=== PATIENT | female | born 1955 | race Caucasian/White ===

== ENCOUNTER 2017-04-28 14:28 | Outpatient (CLI) | payer OTHER ==
--- NOTE | 2017-04-28 15:58 | RAD ---
LUMBAR SPINE TWO VIEWS: History: Low back pain. FINDINGS: There is levoscoliosis of the lumbar spine with degenerative changes in the lower lumbar spine. There is mild compression of the superior endplate of L5. No subluxation is seen. POS: OFF
== END 2017-04-28 14:29 | disposition home or self-care (01) ==
LOC: MADRAD 14:28
PROVIDERS: ATTEND Internal Medicine
DX: M54.5 Low back pain (principal); S33.5XXA Sprain of ligaments of lumbar spine, initial encounter
CPT/HCPCS: 72100

== ENCOUNTER 2019-07-05 16:06 | Emergency (ER) | payer MEDICARE, OTHER ==
[2019-07-05 16:43] LABS: #Basophils 0.1 thou/uL (0.0-0.2); #Eosinphils 0.1 thou/uL (0.0-0.7); #Lymphocytes 1.5 thou/uL (1.20-3.40); #Monocytes 0.5 thou/uL (0.11-0.59); #Neutrophils 5.6 thou/uL (1.40-6.50); %Basophils 0.9 % (0.0-1.0); %Eosinophils 1.6 % (0.0-10.0); %Lymphocytes 19.3 % (21.0-51.0); %Monocytes 6.6 % (0.0-10.0); %Neutrophils 71.5 % (42.0-75.0); Hemoglobin 11.2 g/dL (12.0-16.0); Mean Corpuscular HGB CONC 31.6 g/dL (32.0-36.0); Mean Corpuscular Hemoglobin 30.3 pg (27.0-31.0); Mean Corpuscular Volume 95.7 fL (78.0-98.0); Mean Platelet Volume 6.8 fL (7.4-10.4); Platelet Count 310 thou/uL (130-400); RBC Distribution Width 13.7 % (11.5-14.5); Red Blood Cell (RBC) Count 3.68 mill/uL (4.20-5.40); White Blood Cell (WBC) Count 7.8 thou/uL (4.8-10.8)
[2019-07-05 16:56] LABS: ALT (SGPT) 19 U/L (8-55); AST (SGOT) 20 U/L (5-34); Albumin 4.3 g/dL (3.4-4.8); Alkaline Phosphatase 53 U/L (40-110); Anion Gap 14 mmol/L (10-20); BUN (Urea Nitrogen) 24 mg/dL (9.8-20.1); Bilirubin, Total 0.3 mg/dL (0.2-1.2); Calc. Creatinine Clearance 0 mL/min (70-130); Calcium 9.4 mg/dL (7.8-10.44); Carbon Dioxide 25 mmol/L (23-31); Chloride 108 mmol/L (98-107); Estimated GFR-MDRD 45; Globulin 3.1 g/dL (2.4-3.5); Glucose 99 mg/dL (80-115); Potassium 3.8 mmol/L (3.5-5.1); Protein, Total 7.4 g/dL (6.0-8.3); Sodium 143 mmol/L (136-145)
--- NOTE | 2019-07-05 16:58 | CT ---
Exam: Head CT without contrast HISTORY: Trauma. Pain. COMPARISON: 11/17/2008 FINDINGS: Hemorrhage: No intraparenchymal hemorrhage or extra-axial hematoma. Brain parenchyma: Cortical pollard-white matter differentiation is preserved. No mass effect or midline shift. Basilar cisterns are patent.Hypodensity in the left deep pollard matter structure likely representing a remote lacunar infarct Ventricular system: Ventricles and sulci are patent and symmetric. Calvarium: Intact. Sinuses and mastoid air cells: Adequate aeration. IMPRESSION: No intracranial posttraumatic sequelae.
--- NOTE | 2019-07-05 17:20 | CT ---
CT of thecervical spine: 07/05/2019 COMPARISON:None available HISTORY:Injury, trauma, pain TECHNIQUE: Serial axial CT imaging at2.5 mm intervals from theskull base through lung apices without contrast. Coronal and sagittal reformatted imaging obtained. Findings:The imaged paranasal sinuses and mastoid air cells appear well aerated. The occipital condyles, the dens, the C1-2 articulation, the craniocervical junction, atlantoaxial in terspace, and the cervicothoracic junction demonstrate no acute findings. No prevertebral soft tissue swelling. There is disc space narrowing at C3-4 and C5-6. There is multilevel cervical spine facet hypertrophy on the left. No displaced fracture or evidence of dislocation within the cervical spine. The imaged lung apices ar e grossly unremarkable. Impression:No displaced fracture or evidence of dislocation within the cervical spine.
--- NOTE | 2019-07-05 17:21 | RAD ---
EXAM: CHEST ONE VIEW HISTORY: Chest pain COMPARISON: None FINDINGS: The cardiac silhouette and pulmonary vasculature is within normal limits. The lungs are clear. The os seous structures are intact. IMPRESSION: No acute cardiopulmonary process.
--- NOTE | 2019-07-05 17:22 | RAD ---
Exam: XR Hand Lt 3 View STANDARD HISTORY: Trauma to left hand. COMPARISON: None FINDINGS: Lucency with sclerotic margins is seen in the lunate bone which could be related to subchondral cysti c changes or possibly intraosseous ganglion. No acute fracture, dislocation, or other acute osseous abnormality is identified. IMPRESSION: No acute osseous abnormality is identified. If patient's symptoms should persist, follow-up imaging i s advised.
== END 2019-07-05 17:53 | disposition home or self-care (01) ==
LOC: MADERS 16:06
DX: S13.4XXA Sprain of ligaments of cervical spine, initial encounter (principal); S60.222A Contusion of left hand, initial encounter; I10 Essential (primary) hypertension; M19.90 Unspecified osteoarthritis, unspecified site; F17.210 Nicotine dependence, cigarettes, uncomplicated; M25.512 Pain in left shoulder; Z79.899 Other long term (current) drug therapy; V58.5XXA Driver of pick-up truck or van injured in noncollision transport accident in traffic accident, initial encounter
CPT/HCPCS: 36415; 70450; 71045; 72125; 80053; 85025; 94760; G0390; L0120